=== PATIENT | female | born 1935 | race Caucasian/White ===

== ENCOUNTER → 2023-06-06 | Outpatient (CLI) | payer MEDICARE, SELFPAY ==
[2023-06-06 12:22] LABS: Absolute Lymphocyte Count 2.16 X10^3/uL (0.83-4.51); Absolute Neutrophil Count 4.5 X10^3/uL (2.0-7.7); Basophil# 0.06 X10^3/uL; Basophil% 0.8 % (0-1); Eosinophil# 0.11 X10^3/uL; Eosinophils% 1.5 % (0-5); Hematocrit 44.5 % (37-47); Hemoglobin 13.7 g/dL (12.0-15.0); Lymphocyte # 2.16 X10^3/ul (0.83-4.51); Lymphocyte % 29.1 % (19-41); Mean Corp Hgb Conc 30.8 g/dL (32-36); Mean Corpuscular Hgb 27.7 pg (27.0-32.0); Mean Corpuscular Volume 89.9 fL (81-99); Mean Platelet Vol. 8.7 fl (6.2-12.0); Monocyte# 0.55 X10^3/uL; Monocyte% 7.4 % (0-10); NRBC Flagged by Analyzer 0 % (0-5); Neutrophil # 4.51 X10^3/uL (2.7-7.7); Neutrophil % 60.9 % (47-70); Platelet Count 412 K/mm3 (150-450); RBC Distribution Width CV 13.8 % (11.6-14.6); RBC Distribution Width SD 45.2 fl (35.1-43.9); Red Blood Count 4.95 M/mm3 (4.2-5.4); White Blood Count 7.4 K/mm3 (4.4-11.0)
[2023-06-06 13:23] LABS: ALB/GLOB Ratio 0.8 RATIO (0.9-2.4); AST(SGOT) 21 U/L (15-37); Alanine Aminotransfer ALT/SGPT 17 U/L (13-56); Albumin, Serum 3.5 g/dL (3.2-5.0); Alkaline Phosphatase 65 U/L (45-117); Anion Gap 7 (5-15); BUN 29 mg/dL (7-18); BUN/Creat Ratio 21.5 RATIO (10-20); Calcium,Total 9.7 mg/dL (8.5-10.1); Chloride 106 mmol/L (98-107); Cholesterol 223 mg/dL (200); Creatinine, Serum 1.35 mg/dL (0.55-1.02); EST Glomerular Filtration Rate 39 mL/min (>60); Est Glom Filt Rate - Afr Amer 47 mL/min (>60); Globulin 4.3 g/dL (2.2-4.2); Glucose 90 mg/dL (74-106); High Density Lipoprotein 65 mg/dL; Potassium 4.1 mmol/L (3.5-5.1); Protein, Total 7.8 g/dL (6.4-8.2); Sodium Level 141 mmol/L (136-145); Triglycerides 100 mg/dL; Very Low Density Lipoprotein 20 mg/dL (5-40)
== END | disposition home or self-care (01) ==
LOC: BFHLAB 10:15
PROVIDERS: PCP Family Medicine; Visit Provider Family Medicine
DX: I10 Essential (primary) hypertension (principal); E55.9 Vitamin D deficiency, unspecified; E78.5 Hyperlipidemia, unspecified; Z51.81 Encounter for therapeutic drug level monitoring
CPT/HCPCS: 36415; 80053; 80061; 82306; 85025

== ENCOUNTER → 2023-06-26 | Outpatient (CLI) | payer MEDICARE, SELFPAY ==
--- NOTE | 2023-06-26 13:20 | RAD_ITS ---
STUDY: X-RAY - LUMBAR SPINE REASON FOR EXAM: Female, 87 years old. RADICULOPATHY TECHNIQUE: 4 view(s) of the lumbar spine were obtained. COMPARISON: None FINDINGS: Normal lumbar lordosis. There is no substantial scoliosis. Mild anterolisthesis of L4 on L5 (8mm). There is multilevel endplate spondylosis of the lumbar vertebrae. There is multi-level degenerative disc disease with multi-level disc space narrowing. There is no demonstrated fracture. There is no demonstrated spondylolysis of the pars interarticulares. Multilevel bilateral facet hypertrophy. Degenerative disease of bilateral hips. There is atherosclerotic calcification of the abdominal aorta without a demonstrated aneurysm. Right upper quadrant surgical clips seen. RAD/L/S Spine Min 4 Views IMPRESSION: Multilevel degenerative disease of the spine with no acute fracture. Grade 1 anterolisthesis of L4 on L5 with no obvious pars defect. Electronically Signed: Lula Collazo MD at 20:46 EST ,
--- NOTE | 2023-06-26 13:20 | RAD_ITS ---
STUDY: X-RAY - PELVIS AND RIGHT HIP REASON FOR EXAM: Female, 87 years old. PAIN TECHNIQUE: 3 views of the pelvis and hip. COMPARISON: None. FINDINGS: There is a non-specific bowel gas pattern. Normal visualized soft tissue structures. Normal bilateral iliac wings, sacroiliac joints and visualized sacrum. Normal bilateral superior and inferior pubic rami. There are degenerative changes of the pubic symphysis with articular narrowing and sclerosis. Normal bilateral ischial tuberosities. There are osteoarthritic changes of the femoral head with marginal osteophyte formation. There is osteoarthritic spur formation of the acetabular rim. Acetabulum is mildly irregular and sclerotic. There is moderate articular joint space narrowing of the hip. RAD/HIP, UNI W/ Pelvis 2-3 Views IMPRESSION: No acute fracture or dislocation. Degenerative changes. Electronically Signed: Kishore Castle MD at 17:32 EST ,
== END | disposition home or self-care (01) ==
PROVIDERS: PCP Family Medicine; Referring Provider Family Medicine; Visit Provider Family Medicine
DX: M54.16 Radiculopathy, lumbar region (principal); M25.551 Pain in right hip
CPT/HCPCS: 72110; 73502

== ENCOUNTER → 2023-07-05 | Outpatient (CLI) | payer MEDICARE, SELFPAY ==
--- NOTE | 2023-07-05 11:48 | BI_ITS ---
MAMMOGRAPHY - BILATERAL SCREENING REASON FOR EXAM: Female, 87 years old. Routine annual screening examination. PERTINENT HISTORY: Non-contributory. Prior right excisional breast biopsies. TECHNIQUE: Digital bilateral breast ryann (3D mammographic acquisition) in the CC and MLO projections. 2-D mediolateral oblique (MLO) and craniocaudad (CC) views of both breasts were obtained. CAD: Full Field Digital Mammography with Computer Added Detection was performed. COMPARISON: Comparison is made with prior study dated June 28, 2022 and June 22, 2021. FINDINGS: Breast Composition: The breasts are almost entirely fatty. There are no dominant masses or suspicious calcifications. Stable architectural distortion is seen along the inferior central portion of the right breast in keeping with prior biopsy. Stable small bilateral axillary lymph nodes. No other significant abnormalities are identified. There has been no significant change since the prior study. BI/SCRN MAMM (CAD)W/RYANN BILAT IMPRESSION: Stable bilateral screening mammogram. Yearly follow-up mammogram recommended. (A) ASSESSMENT CATEGORY: BIRADS Category 2: Benign. A letter regarding these results will be sent to the patient by the facility within 30 days. Approximately 10% of breast cancers are not detected by mammography. A normal mammogram should not delay biopsy of a clinically suspicious abnormality. [id number] Electronically Signed: Brandt Fuchs MD at 13:24 EST ,
== END | disposition home or self-care (01) ==
PROVIDERS: PCP Family Medicine; Referring Provider Family Medicine; Visit Provider Family Medicine
DX: Z12.31 Encounter for screening mammogram for malignant neoplasm of breast (principal)
CPT/HCPCS: 77063; 77067

== ENCOUNTER 2023-09-06 11:00 | Outpatient (RCR) | payer MEDICARE, SELFPAY ==
--- NOTE | 2023-07-10 10:41 | HP.PTEVAL ---
Patient's Visit Information Visit Information Visit Information: MJ MENDOZA is a 87 year old F referred to Physical Therapy by Dr. Francia Vieira DO with a diagnosis of R hip and leg pain. Date of Evaluation: 07/09/23 Physical Therapist: Jose Daniel Cano DPT Visit Plan Frequency: 2x /Week Duration: 3 Weeks Plan: 1) STM to R ITB, TFL, glute med, piriformis 2) Lester hip/glute strengthening (pt has difficulty standing on RLE, much weaker on R side and unable to resist gravity) Pt has significant weakness on RLE, generally tight and weak. STM may provide some relief, exercise some caution to not overstress R hip musculature with strengthening. HEP: standing hip ABD, seated hamstring stretch, glute bridges, LTR Subjective Subjective: Pt presents to PT with seemingly radicular symptoms in RLE, described as a pulling in ant kahn with walking. Has some pulling under knee cap with prolonged walking, 30 mins is max she is able to navigate in store. Pt reports 0/10 pain at best and 4/10 at worst with WB act such as walking. Pt wakes up at night d/t pain and aching in her RLE, does not notice any pattern throughout the day. Denies any falls of hx of back pain. Pain Right Lower Extremity: Pain Intensity (Out of 10): 0 Pain Intensity Range: 0 and 4 Objective Objective: MMT: global LE strength: L= 4-/5 and R= 3+/5 except for hip abd, R= 3-/5 and L=3+/5 and partial range with supine glute bridge ROM: tightness in lester HS (R worse than L), some limitations in R hip ER (felt like a stretch at end range), overall stiffness in lumbar ROM and felt a pull in R ITB with R hip rotation PALPATION: tenderness in lester glute med and TFL (R worse than L), tenderness along lester ITB and R ITB insertion GAIT: slightly antalgic, decreased stance time on RLE and pain with R SLS 5xSTS: 19.66s TU.24s Pt demonstrated severe R hip weakness that has affected her tolerance to WB needed to perform housework, go grocery shopping, and participate in recreational act. Discussed with pt the need to strengthen lester LEs, including glutes needed to support hip joint, decrease pain, and improve tolerance to ADLs. Balance/Special Test Scores Lower Extremity Functional Score: 44 Goals Goal 1:: STG: Pt will demonstrate normalized gait pattern Goal Time Frame: 2-4 Weeks Goal 2:: LTG: Pt will be able to walk around the grocery store for 30+ min with <2/10 pain Goal Time Frame: 2-4 Weeks Goal 3:: LTG: Pt will demonstrate symmetrical LE strength with <2/10 pain in RLE Goal Time Frame: 2-4 Weeks Goal 4:: LTG: Pt will be able to sleep through the night without pain waking her up Goal Time Frame: 2-4 Weeks Rehabilitation Potential Physical Therapy Diagnosis: Pt presents to PT with R hip and leg pain most likely d/t R hip weakness and tightness of LE musculature. Pt would benefit from PT services to increase lester hip/LE strength, improve tissue extensibility, and increase tolerance to WB act (standing and walking). Rehabilitation Potential: Good Anticipated Interventions Patient/Client Instruction: Educate patient on: Condition and Plan of Care For the Purpose of:: To decrease pain, To improve muscle performance and motor function, To improve ability to perform ADL's, To increase tolerance to activity/condition/position, To improve performance and independence with ADL's, To improve ability of physical actions for home/community/work/leisure, To improve gait and locomotor functions, To improve health of tissue, To decrease soft tissue restriction, To increase flexibility/ROM, To improve balance, To improve safety with gait, To assume or resume ADL's, To reduce risk of recurrence, To improve health and function, To improve self management, To prevent re-injury, To improve ability to perform tasks related to life management and To improve tolerance to ADL's Therapeutic Exercise to Include: Strength training, Balance training, Flexibilty training, Gait and locomotor training, Passive ROM and Active ROM For the Purpose of:: To improve nutrient delivery to tissue, To increase oxygenation perfusion, To improve muscle performance and motor function, To improve ability to perform ADL's, To increase tolerance to activity/condition/position, To improve performance and independence with ADL's, To improve ability of physical actions for home/community/work/leisure, To improve gait and locomotor functions, To decrease soft tissue restriction, To improve balance, To improve safety with gait, To assume or resume ADL's, To improve safety, To improve self management, To prevent re-injury, To improve ability to perform tasks related to life management and To improve tolerance to ADL's Manual Therapy Techniques to Include: Passive ROM and Soft tissue mobilization For the Purpose of:: To decrease pain, To decrease swelling/inflammation, To increase ROM, To improve health of tissue, To decrease soft tissue restriction, To increase flexibility/ROM and To improve self management Cryotherapy (ice pack, ice massage): Yes Thermo therapy (hot pack): Yes Ultrasound (thermal/non thermal): Yes For the Purpose of:: To decrease pain, To decrease swelling/inflammation, To decrease soft tissue restriction, To increase flexibility/ROM and To improve tolerance to ADL's Text: Thank you for the opportunity to evaluate your patient. For Medicare and Medicare HMO plans, please review the plan of care and approve it. It will need to be FAXED BACK to us at [phone] for Medicare purposes. For Medicare only, by signing this I certify the plan of care. Please let me know if there are questions or concerns regarding this plan of care. Physician Signature: Date:
--- NOTE | 2023-08-01 14:39 | HP.PTREVAL_ITS ---
Re-Evaluation Intro: Dr. Francia Vieira, DO, It has been my pleasure to treat MJ MENDOZA over the last 7 visits for R hip and leg pain. Please see the progress note below for an update on the physical therapy plan of care! Subjective Subjective: Pt reports feeling that her R hip is stronger and was able to walk into grocery store without the support of a grocery cart. Pt still having pain in the morning, hip pain has reduced but pain in knee that radiates down to an kle is still giving her discomfort. Objective Objective/Function: ROM: R hip ROM - IR/ER 75%, full ROM with glute bridge, some HS tightness MMT: 3+/5 R hip flex, 3-/5 R hip ABD in S/L, lester knee ext 4/5, lester knee flex 4+/5 PALPATION: tenderness in distal R ITB, decreased R patellar mobility GAIT: slight antalgic with decreased stance time on RLE, improved and felt looser after NuStep and palaption, but slightly antalgic again after gym machines Overall pt had decreased pain and improved hip strength/flexibility. Pt demonstrates some ITB irritation/tightness most likely d/t increased demand of hip musculature in PT. Waiting to see if indep gym program and rest will help alleviate pain long-term. Plan Plan Plan: Pt to return in 3 weeks after trialing indep gym program: NuStep, leg ext machine, hip ABD machine, and leg press. If pt is still having ITB/knee pain, consider continuing PT services, but for now will see how rest and HEP+gym program affects pain. Next visit, write down gym program with machine # and machine settings. Pt has significant weakness on RLE, generally tight and weak. STM may provide some relief, exercise some caution to not overstress R hip musculature with strengthening. HEP: standing hip ABD, seated hamstring stretch, glute bridges, LTR Balance/Gait/Functional tests Balance/Special Test Scores Lower Extremity Functional Score: 44 Goals Goals Goal 1:: STG: Pt will demonstrate normalized gait pattern Goal Time Frame: 2-4 Weeks Goal Progress: Progressing Goal 2:: LTG: Pt will be able to walk around the grocery store for 30+ min with <2/10 pain Goal Time Frame: 2-4 Weeks Goal Progress: Progressing Goal 3:: LTG: Pt will demonstrate symmetrical LE strength with <2/10 pain in RLE Goal Time Frame: 2-4 Weeks Goal Progress: Progressing Goal 4:: LTG: Pt will be able to sleep through the night without pain waking her up Goal Time Frame: 2-4 Weeks Goal Progress: Goal Met Anticipated Interventions Anticipated Interventions Patient/Client Instruction: Educate patient on: Condition and Plan of Care For the Purpose of:: To decrease pain, To improve muscle performance and motor function, To improve ability to perform ADL's, To increase tolerance to activity/condition/position, To improve performance and independence with ADL's, To improve ability of physical actions for home/community/work/leisure, To impr ove gait and locomotor functions, To improve health of tissue, To decrease soft tissue restriction, To increase flexibility/ROM, To improve balance, To improve safety with gait, To assume or resume ADL's, To reduce risk of recurrence, To improve health and function, To improve self management, To prevent re-injury, To improve ability to perform tasks related to life management and To improve tolerance to ADL's Therapeutic Exercise to Include: Strength training, Balance training, Flexibilty training, Gait and locomotor training, Passive ROM and Active ROM For the Purpose of:: To improve nutrient delivery to tissue, To increase oxygenation perfusion, To improve muscle performance and motor function, To improve ability to perform ADL's, To increase tolerance to activity/condition/position, To improve performance and independence with ADL's, To improve ability of physical actions for home/community/work/leisure, To improve gait and locomotor functions, To decrease soft tissue restriction, To improve balance, To improve safety with gait, To assume or resume ADL's, To improve safety, To improve self management, To prevent re-injury, To improve ability to perform tasks related to life management and To improve tolerance to ADL's Manual Therapy Techniques to Include: Passive ROM and Soft tissue mobilization For the Purpose of:: To decrease pain, To decrease swelling/inflammation, To increase ROM, To improve health of tissue, To decrease soft tissue restriction, To increase flexibility/ROM and To improve self management Cryotherapy (ice pack, ice massage): Yes Thermo therapy (hot pack): Yes Ultrasound (thermal/non thermal): Yes For the Purpose of:: To decrease pain, To decrease swelling/inflammation, To decrease soft tissue restriction, To increase flexibility/ROM and To improve tolerance to ADL's Re-Evaluation Ending Re-evaluation ending: Please do not hesitate to contact me at [phone] by phone or if you have questions or concerns regarding this new plan of care! Sincerely, STEFAN FrancoT
--- NOTE | 2023-09-06 11:36 | HP.PTDCSUM ---
Discharge Summary D/C summary: It has been my pleasure to treat MJ MENDOZA referred by Dr. Francia Vieira DO, with the diagnosis of R hip and leg pain for a total of 9 visit(s). Discharge Date: 09/06/23 Please see the following information for a summary of their discharge status. Subjective Subjective: Pt reports being able to walk better, has less soreness, and feels that her leg is looser after using her rolling pin to lester ITBs. Pain Right Lower Extremity: Pain Intensity (Out of 10): 2 Overall Improvement % Improvement: 80 Objective Objective/Function: MODIFIED OBERS: (-) MMT: symmetrical strength lester, global 4-/5 with only slight pull with resisted R hip flex and hip ABD STAIRS: reciprocal pattern to ascend and descend, used unilateral HR and was more concerned about knee giving out, no pain or pulling GAIT: normalized pattern Pt has no pain, a good understanding of HEP, and a plan to come to the gym consistently on her own to improve hip strength and functional stamina. Skilled services no longer needed. pt appropriate to continue ex indep. Goals Goal 1:: STG: Pt will demonstrate normalized gait pattern Goal Progress: Goal Met Goal 2:: LTG: Pt will be able to walk around the grocery store for 30+ min with <2/10 pain Goal Progress: Goal Met Goal 3:: LTG: Pt will demonstrate symmetrical LE strength with <2/10 pain in RLE Goal Progress: Goal Met Goal 4:: LTG: Pt will be able to sleep through the night without pain waking her up Goal Progress: Goal Met Plan Plan: Pt to d/c home with HEP, has met all goals and will continue with gym program D/C Information Discharge Comments: Pt to d/c home with indep HEP, met all goals d/c sentence: If there are questions or concerns regarding this patient's physical therapy, please feel free to call me at [phone]. Thank you for the referral of this patient. Sincerely, Jose Daniel Cano, DPT Balance/Gait/Functional tests Balance/Special Test Scores Lower Extremity Functional Score: 54 Improvement % Improvement: 80
== END 2023-09-06 12:41 | disposition home or self-care (01) ==
LOC: PT 11:00
PROVIDERS: PCP Family Medicine; Referring Provider Family Medicine; Visit Provider Family Medicine
DX: M54.16 Radiculopathy, lumbar region (principal); M25.551 Pain in right hip; M79.604 Pain in right leg
CPT/HCPCS: 97110; 97161; 97530

== ENCOUNTER → 2023-09-10 | Outpatient (CLI) | payer SELFPAY ==
[2023-09-10 15:04] LABS: SERUM TEARS COLLECTION SPECIMEN PROCESSED
== END | disposition home or self-care (01) ==
PROVIDERS: PCP Family Medicine; Referring Provider Ophthalmology; Visit Provider Ophthalmology
DX: Z00.00 Encounter for general adult medical examination without abnormal findings (principal)

== ENCOUNTER → 2023-10-04 | Outpatient (CLI) | payer MEDICARE, SELFPAY ==
--- NOTE | 2023-10-04 13:52 | VDLE_ITS ---
Reason For Study: RLE Pain RIGHT LEFT GSV is normal. CFV is compressible, spontaneous, phasic, CFV is compressible, spontaneous, phasic, competent, and demonstrates normal competent and demonstrates normal augmentation. augmentation. FV is compressible, spontaneous, phasic, competent and demonstrates normal augmentation. POP V is compressible, spontaneous, phasic, competent and demonstrates normal augmentation. T/P Trunk is compressible. PTV is compressible. RT PerV is compressible. Procedure This is a venous duplex using B-mode, color flow and spectral Doppler. Exam performed in department. The exam was diagnostic. A preliminary report was called and/or faxed to Dr. Melton office. VL/Venous Duplex US, Unilateral Interpretation Summary Deep veins of the right lower extremity are patent and compressible segmentally . There is no evidence of right lower extremity deep vein thrombosis. Valvular competence lizbeth ears intact within the proximal deep venous system on the right . The right great saphenous vein a ppears patent and compressible segmentally. The left common femoral vein is patent and compressib le . Ordering Physician: Emiliano Melton Referring Physician: Francia Vieira Performed By: Vinod Agarwal RVT
== END | disposition home or self-care (01) ==
LOC: CVS 13:50
PROVIDERS: PCP Family Medicine; Referring Provider Orthopaedic Surgery; Visit Provider Orthopaedic Surgery
DX: M79.661 Pain in right lower leg (principal)
CPT/HCPCS: 93971

== ENCOUNTER → 2023-10-07 | Outpatient (CLI) | payer MEDICARE, SELFPAY ==
[2023-10-07 16:07] LABS: AST(SGOT) 22 U/L (15-37); Alanine Aminotransfer ALT/SGPT 15 U/L (13-56); Albumin, Serum 3.8 g/dL (3.2-5.0); Alkaline Phosphatase 55 U/L (45-117); Anion Gap 9 (5-15); BNP,B-Type NATRIURETIC PEPTIDE 36.1 pg/mL (0-100); BUN 39 mg/dL (7-18); BUN/Creat Ratio 24.8 RATIO (10-20); Calcium,Total 9.6 mg/dL (8.5-10.1); Chloride 103 mmol/L (98-107); Creatinine, Serum 1.57 mg/dL (0.55-1.02); EST Glomerular Filtration Rate 33 mL/min (>60); Est Glom Filt Rate - Afr Amer 40 mL/min (>60); Globulin 3.8 g/dL (2.2-4.2); Glucose 93 mg/dL (74-106); Potassium 4.1 mmol/L (3.5-5.1); Protein, Total 7.6 g/dL (6.4-8.2); Sodium Level 138 mmol/L (136-145)
== END | disposition home or self-care (01) ==
LOC: BFHLAB 13:38
PROVIDERS: PCP Nurse Practitioner Family; Referring Provider Nurse Practitioner Family; Visit Provider Nurse Practitioner Family
DX: R60.0 Localized edema (principal); R06.02 Shortness of breath
CPT/HCPCS: 36415; 80053; 83880